=== PATIENT | female | born 1970 | race Caucasian/White ===

== ENCOUNTER 2016-12-07 05:35 | Inpatient (IN) | payer MEDICARE ==
--- NOTE | ~2016-12-07 | DS ---
PATIENT'S NAME: LAURA XIE [facility] AGE: 45 Y [address] ROOM: G6230 [place], [place] [address] LOCATION: [facility] ADMIT DATE: 12/07/2016 Discharge Summary DISCHARGE DATE: 12/09/2016 FAMILY PHYSICIAN: Haley Grider MD ATTENDING PHYSICIAN: Joshua Galaviz PRINCIPAL DIAGNOSIS: Severe sepsis secondary to methicillin-resistant staphylococcus aureus infected diabetic right foot ulcers. OTHER DIAGNOSES: 1. Questionable osteomyelitis of the right foot. 2. Insulin-dependent diabetes mellitus. 3. Severe peripheral arterial disease. 4. Atrial fibrillation, long-term anticoagulation. 5. Deep venous thrombosis. 6. Pneumonia. 7. Fibromyalgia. 8. Multiple hospitalizations. 9. Multiple allergies. HOSPITAL COURSE: A 45-year-old lady with a past medical history of severe diabetes mellitus, on insulin pump, who was recently discharged from the hospital for MRSA related sepsis on Bactrim. Came back to the emergency department not feeling well with a lot of nausea, vomiting, and low-grade fevers. In the emergency department, she was found to be severely hypoglycemic with a glucose of 10 on the BMP. She was also found to be in severe sepsis with elevated lactic acid as well as white count of 40,000. She was treated per the sepsis protocol. Initially, broad-spectrum antibiotics including linezolid and Zosyn were instituted with prompt resolution of the sepsis and resolution of the leukocytosis. Wound cultures came back positive for MRSA from the right foot. X-ray of the foot could not rule out the osteomyelitis. She was switched to linezolid IV( rash with vanco). This right foot ulcer had been a problem for many months now and is very challenging. I spoke to Infectious Disease doctor, Dr. Mckeon, over phone from [place] and followup appointment with him has been made on 12/11/2016. He was gracious enough to see her on an urgent basis. She might need an MRI of the foot again. Of note, the last MRI in October did not show any clinical evidence of osteomyelitis. She does have a port which has been there for couple of years now, and we could not draw any blood samples from it as well. UA was obtained after the institution of the antibiotics, so it could not be relied on. HOME MEDICATIONS: Gave a long list of home medications with multiple allergies; 1. Atorvastatin 80 mg p.o. every night at bedtime. 2. Clotrimazole 10 mg p.o. 5 times a day. 3. Cymbalta 120 mg p.o. every day. 4. Flonase 50 mcg 2 sprays nose every day. PATIENT'S NAME: LAURA XIE [facility] AGE: 45 Y [address] ROOM: [place] [address] LOCATION: [facility] ADMIT DATE: 12/07/2016 Discharge Summary DISCHARGE DATE: 12/09/2016 FAMILY PHYSICIAN: Haley Grider MD ATTENDING PHYSICIAN: Joshua Galaviz 5. Gabapentin 600 mg p.o. 4 times daily. 6. Insulin pump. 7. Floranex tablet 1 tablet p.o. twice daily. 8. Melatonin 10 mg p.o. every day at bedtime. 9. Omeprazole 40 mg p.o. twice daily. 10. Potassium 40 mEq 3 times daily. 11. Prednisone as previously prescribed. 12. Seroquel 400 mg p.o. twice daily. 13. Triamcinolone 1 application topical twice daily. 14. Advair 1 puff inhalation twice daily. 15. Tylenol 1000 mg p.o. q.6 hours p.r.n. 16. Diphenhydramine 75 mg p.o. every 3 hours p.r.n. 17. Dilaudid 4 mg take 2 tablets every 4 hours p.r.n. 18. Albuterol 2 puffs inhalation every 2 hours p.r.n. 19. Levocetirizine 5 mg p.o. every day. 20. Polyethylene glycol and MiraLax 17 g p.o. every day p.r.n. 21. Glucagon 1 mg subcu as needed p.r.n. for hypoglycemia. 22. Lasix 80 mg twice daily. 23. Nitrostat sublingual as needed. 24. Spironolactone 100 mg p.o. 4 times daily. 25. Zofran 4 mg p.o. 4 hours daily. 26. Metoprolol tartrate 50 mg p.o. twice daily. 27. Sulfamethoxazole and trimethoprim have been discontinued from the home medication list. 28. New medication is vancomycin IV. Pharmacy to dose. DISCHARGE INSTRUCTIONS: She has been instructed to take diabetic diet. She will need an appointment with the primary care physician within 1 week to assess the creatinine level. She has a lot of medications which need to be addressed, and I will leave it to the primary care physician who started in the first place. Activity as tolerated. FOLLOWUP: Follow up with Infectious Disease doctor on 12/11/2016. Insulin pump has been started on the discharge. I spent 40 minutes in discharge planning and coordinating care as well as answer questions on this patient. MD MEGHA YOUSSEF/velasquez PATIENT'S NAME: LAURA XIE [facility] AGE: 45 Y [address] ROOM: [place] [address] LOCATION: [facility] ADMIT DATE: 12/07/2016 Discharge Summary DISCHARGE DATE: 12/09/2016 FAMILY PHYSICIAN: Haley Grider MD ATTENDING PHYSICIAN: Joshua Galaviz /[id number] d: 12/10/16 0307 t: 12/10/16 1638, DISCHARGE SUMMARY
--- NOTE | ~2016-12-07 | CON ---
PATIENT'S NAME: LAURA XIE [facility] AGE: 45 Y [address] ROOM: G6204 [place], [place] [address] LOCATION: GICU ADMIT DATE: 12/07/2016 Consultation DISCHARGE DATE: FAMILY PHYSICIAN: Haley Grider MD ATTENDING PHYSICIAN: CHRIS GALAVIZ DATE OF CONSULTATION: 12/07/2016 REFERRING PHYSICIAN: Chris Galaviz MD LOCATION: Neuro Trauma Unit. REASON FOR CONSULTATION: Wound care consultation to evaluate and treat a right diabetic foot ulcer. HISTORY OF PRESENT ILLNESS: This is a 45-year-old female patient who was admitted to [facility] with hypoglycemia and severe sepsis. The patient was just discharged from the hospital 2 days ago. I am familiar with the patient. I last saw her down in the [facility] on 11/06/2016. The patient has a significant history for type 2 diabetes mellitus with insulin pump use, congestive heart failure, a left vomxl-ekh-cyqt amputation, history of osteomyelitis, history of MRSA and VRE, atrial fibrillation, DVT, and multiple foot surgeries. She underwent an I and D after osteomyelitis was found in her right foot this summer. She also underwent another debridement by Dr. Royal on 10/18/2016. At that time, no osteomyelitis was noted to the wound per the MRI. When she was discharged from the hospital, she was unable to regulate her "diabetes." She reported that she was unable to keep anything down and having trouble regulating her blood sugars. She reports that she was feeling warm, but does not think she had a fever. Her white blood cell count is significantly elevated today at 40.1. The patient has been applying wet-to- dry dressings to her right foot, changing them b.i.d. She has not noticed any pus or purulent exudate from that site. She reports that she thinks her foot looks good. She is complaining of 9/10 pain and requesting a BLOOD BANK COORDINATOR pump. She reports that her pain is burning and stabbing in nature. She does not have much sensation to that foot. She reports a fair appetite. She has a stump to her left leg that is adjusted by Echo Technologist. She is denying chest pain. She reports that she is slightly short of breath. She does have a significant drug rash from Levaquin. PAST MEDICAL HISTORY: Type 2 diabetes mellitus with insulin pump use, congestive heart failure, hypothyroidism, history of MRSA and VRE, osteomyelitis, paroxysmal atrial fibrillation, hyperlipidemia, GERD, obesity, pulmonary hypertension, diabetic neuropathy, anxiety, depression, DVT, asthma, fibromyalgia, pneumonia, hiatal hernia, peripheral edema, anemia, migraines, back pain, dizziness, allergic rhinitis, mitral valve prolapse, thrombosed right arm, nausea, and PATIENT'S NAME: LAURA XIE [facility] AGE: 45 Y [address] ROOM: G6204 [place], [place] [address] LOCATION: [facility] ADMIT DATE: 12/07/2016 Consultation DISCHARGE DATE: FAMILY PHYSICIAN: Haley Grider MD ATTENDING PHYSICIAN: CHRIS GALAVIZ gastroparesis. PAST SURGICAL HISTORY: Appendectomy, atrial septal defect repair in 2001, tonsillectomy with adenoidectomy, ovary removal, several heart catheterizations, multiple foot debridement and amputations, left qwdil-sdr-qzzl amputation in 08/2016, cholecystectomy, carpal tunnel surgery, tooth extraction, lymph node biopsy of the right groin, and lumbar peritoneal shunt with revision. FAMILY HISTORY: The patient's mother had coronary artery disease and peripheral vascular disease. Her father had coronary artery disease and COPD. SOCIAL HISTORY: The patient lives with her partner in [place], [place]. She denies smoking or alcohol use. She does appear to live a sedentary lifestyle. ALLERGIES: NUMEROUS. LYRICA, METFORMIN, MOXIFLOXACIN, VANCOMYCIN, ERTAPENEM, METRONIDAZOLE, LINEZOLID, LATEX, ADHESIVE TAPE, DAPTOMYCIN, AMBIEN, TRAZODONE, IODINE CONTRAST MEDIA, DILCIA INHIBITORS, PENICILLIN, QUINOLONES, AND CLINDAMYCIN. CURRENT MEDICATIONS: Pertinent to this dictation: 1. Zosyn. 2. Zyvox. Please refer to the medication administration record for further details. REVIEW OF SYSTEMS: A 10-point review of systems was completed and all are negative except as mentioned above in the HPI. PHYSICAL EXAMINATION: VITAL SIGNS: Temperature 99.9, pulse 117, respirations 22, blood pressure 185/81, pulse oximetry 97% on room air, height 5 feet 9 inches, and weight 102 kg. GENERAL: The patient is alert and oriented x3. She appears talkative and happy. She appears slightly diaphoretic. She appears to have gained weight in her face. HEENT: Head is normocephalic and atraumatic. RESPIRATORY: Clear, diminished throughout. CARDIOVASCULAR: Tachycardia had been noted, but when I assessed her she had a regular rate and rhythm. ABDOMEN: Bowel sounds active in all 4 quadrants. PATIENT'S NAME: LAURA XIE [facility] AGE: 45 Y [address] ROOM: [place] [address] LOCATION: GICU ADMIT DATE: 12/07/2016 Consultation DISCHARGE DATE: FAMILY PHYSICIAN: Haley Grider MD ATTENDING PHYSICIAN: CHRIS GALAVIZ EXTREMITIES: +1 right pedal pulses. Extremity is warm to touch. Capillary refill intact. The patient is missing toes to her right foot. NEUROLOGIC: Decreased sensation to her right foot. SKIN: Right first metatarsal head wound appears relatively stable from the last time I saw it. It is not near as deep this time. The wound measures 5.5 cm width x 5.0 cm length x 0.5 cm depth. About 50% of the wound bed is hypergranulation tissue. Wound bed is pale pink. There is a small amount of serous exudate noted. There is no fluctuance or odor. Periwound is intact. The patient has a significant drug rash to her bilateral arms and to her right leg with scattered red blotches and scabs. The patient notes these sites itch. LABORATORY DATA: White blood cell count 40.1, hemoglobin 18.5, hematocrit 55.9, and platelets 714. Sodium 139, potassium 3.7, chloride 97, bicarbonate 29, BUN 22, creatinine 1.2, glucose critical at 10. Procalcitonin 0.08. Lactate 2.6. Wound culture: Few gram-positive cocci and rare white blood cells. Final results pending. ASSESSMENT AND PLAN: Again, this is a 45-year-old female patient who was admitted to the hospital with hypoglycemia and severe sepsis. 1. Right diabetic foot wound to the first metatarsal head. This area appears relatively stable since the last time I saw her. The patient is continuing to refuse an amputation, but voices she knows she will "eventually have to get it cut off." The wound is not draining much. I do not see a need for a wound VAC at this time. There is some hypergranulation tissue, so I will switch up the dressing to a dry gauze, changing it b.i.d. She may need silver nitrate to those areas in the future. I am pleased that the depth does not probe to bone. Continue IV antibiotics. 2. Drug rash to arms and right leg. The patient is on a tapering dose of prednisone and triamcinolone cream b.i.d. 3. Elevated white blood cell count of 40.1. This is probably steroid and diabetic related to in addition to the sepsis. Hospitalist is managing IV therapy. It is difficult because the patient does have numerous allergies, but Zosyn and Zyvox are good coverage. 4. Pain. The patient is rating her pain 9/10. She is requesting a BLOOD BANK COORDINATOR pump. She reports that Dr. Grider normally gives her one. She is on oral narcotics currently. I suggested she talk to the hospitalist about this. 5. Uncontrolled type 2 diabetes mellitus with insulin pump use. The patient will have a diabetic consult. I would like to thank Dr. Galaviz for this consult. PATIENT'S NAME: LAURA XIE [facility] AGE: 45 Y [address] ROOM: [place] [address] LOCATION: [facility] ADMIT DATE: 12/07/2016 Consultation DISCHARGE DATE: FAMILY PHYSICIAN: Haley Grider MD ATTENDING PHYSICIAN: CHRIS GALAVIZ FRANCISCO JAVIER PATTEN APRN FOR [employer]/velasquez /[id number] d: 12/07/16 2340 t: 12/15/16 1334, CONSULTATION REPORT
--- NOTE | ~2016-12-07 | ER ---
PATIENT'S NAME: LAURA XIE [facility] AGE: 45 Y [address] ROOM: [place] [address] LOCATION: GICU ADMIT DATE: 12/07/2016 ER/Outpatient Report DISCHARGE DATE: FAMILY PHYSICIAN: Haley Grider MD ATTENDING PHYSICIAN: CHRIS GALAVIZ Time of Arrival: 0530 hours. Time of Evaluation: By myself at 0600 hours. CHIEF COMPLAINT: Low blood sugar. HISTORY OF PRESENT ILLNESS: The patient is a 45-year-old female, who presents to the emergency department today with a chief complaint of low blood sugar. She was recently released from [facility] after osteomyelitis of her right foot two days prior to arrival. She was found minimally responsive and found to have blood sugar in the 40s. She was transported via BLS unit here to the emergency department. Upon arrival here, she was found to have a fingerstick blood sugar of 23, and she was given an amp of D50 at that time and her symptoms improved. She reports that she is just not feeling well overall. She denies any chest pain or shortness of breath. Denies any fevers or chills. Denies any diarrhea or constipation. She does have a history of jeenl-cew-hwsx amputation on the left. She does report that she has chronic pain in her hip. PAST MEDICAL HISTORY: 1. Insulin-dependent diabetes mellitus with the insulin pump. 2. Peripheral neuropathy with chronic pain. 3. Asthma. 4. Secondary pulmonary hypertension. 5. Dyslipidemia. 6. Iron deficiency. 7. Allergic rhinitis. 8. Fluid retention. 9. Mood disorder. 10. Hives. 11. Gastroparesis. 12. Hypertension. 13. Gastroesophageal reflux disease. 14. Constipation. 15. Hypokalemia. 16. Nocturnal hypoxia. 17. Obesity. PAST SURGICAL HISTORY: 1. Shunt placement multiple associate surgeries with debridement or removal. 2. Left psenz-dsh-lkid amputation. PATIENT'S NAME: LAURA XIE [facility] AGE: 45 Y [address] ROOM: [place] [address] LOCATION: GICU ADMIT DATE: 12/07/2016 ER/Outpatient Report DISCHARGE DATE: FAMILY PHYSICIAN: Haley Grider MD ATTENDING PHYSICIAN: CHRIS GALAVIZ 3. Left groin lymph node biopsy. 4. Repair of an ASD. 5. Port placement. 6. Laparoscopy. 7. Tonsillectomy. 8. Cholecystectomy. 9. Hand surgery. 10. Endometrial biopsy. 11. Carpal tunnel syndrome. 12. Appendectomy. SOCIAL HISTORY: The patient denies any tobacco, alcohol, or illicit drug use. ALLERGIES: IV DYE, PENICILLIN, TRAZODONE, LATEX, DILCIA INHIBITORS, QUINOLONE, FLAGYL, AMBIEN, METFORMIN, VANCOMYCIN, LEVAQUIN, LINEZOLID, INVANZ, AND TYGACIL. MEDICATIONS: Please see list. PRIMARY CARE DOCTOR: Haley Grider MD REVIEW OF SYSTEMS: All systems are reviewed by myself and are negative with the exception of those discussed in the HPI and past medical history. PHYSICAL EXAMINATION: VITAL SIGNS: Weight 102.2 kg, blood pressure 156/77, pulse 114, respiratory rate 20, temperature 97.6, and oxygen saturation 97% on room air. GENERAL: The patient is a 45-year-old female, who appears older than stated age. HEENT: Normocephalic and atraumatic. Pupils are equal, round, reactive to light. Extraocular motions are intact. Nares are patent bilaterally. TMs are clear. Mucous membranes are mildly dry. NECK: Supple. There is no nuchal rigidity. CARDIOVASCULAR: Tachycardic. LUNGS: Clear to auscultation bilaterally. No wheezes, rales, or rhonchi. ABDOMEN: Soft, nontender, and nondistended. No rebound, rigidity, or guarding. MUSCULOSKELETAL: The patient has a left tvwgy-zfw-fncl amputation. Her right foot has open wound approximately the size of a golf ball on the plantar aspect of her right foot. She does have missing toes of the right foot. SKIN: Otherwise as described above in musculoskeletal. No other rashes or PATIENT'S NAME: LAURA XIE [facility] AGE: 45 Y [address] ROOM: G6[address] [place], [place] [address] LOCATION: [facility] ADMIT DATE: 12/07/2016 ER/Outpatient Report DISCHARGE DATE: FAMILY PHYSICIAN: Haley Grider MD ATTENDING PHYSICIAN: CHRIS GALAVIZ lesions. LABORATORY AND IMAGING DATA: Labs and x-rays are obtained. Multiple Accu-Chek blood sugars are checked and they ranged from 40 to 117, 136, 67, 52, 42, 41, 57, and 93. CBC: White blood cell count 40.1, hemoglobin 18.5, hematocrit 55.9, and platelets are 714,000. ANC is 35.3, 1% bands. CMP is unremarkable except for a glucose of 10, creatinine of 1.2, alkaline phosphatase 209, AST 76, ALT of 90, lactase is 2.6, and procalcitonin is 0.08. IMPRESSION: 1. Hypoglycemia. 2. Leukocytosis. 3. Recent osteomyelitis, right foot. 4. Initial visit. 5. Critical care time 38 minutes. EMERGENCY DEPARTMENT COURSE: The patient was brought back to the examination room. He was initially seen and evaluated by Dr. Mendiola, transfer of care was made to myself at shift change. The patient's insulin pump is removed. She does require a total of 8 amps of D50. She is also given 2 mg of Dilaudid, all IV. She was started on D5 half-normal saline and was switched to D10 half normal saline. The patient did require multiple re-evaluations due to her hypoglycemia, as Accu-Cheks were made approximately over 30 minutes. She required multiple D50 ampules. I did discuss the case with Dr. Julio Cesar Levin, who is on-call for the patient's primary care doctor. He does request hospitalist admission. I have contacted Dr. Galaviz with the Hospitalist Service. He does agree to accept the patient for further evaluation, treatment, and management. The patient did require critical care time of 38 minutes. This did include talking with the family, talking with the patient, talking with the consultants, ordering tests, reviewing tests, as well as close monitoring with the patient with recurrent hypoglycemia. This was a cumulative critical care time of 38 minutes. I did discuss the results with the patient and her at the bedside. They are agreeable with the plan for admission and she is without further questions. DISPOSITION: The patient is admitted under the care of the Hospitalist Service in stable condition. PATIENT'S NAME: ANNE-MARIE LAURA L [facility] AGE: 45 Y [address] ROOM: [place] [address] LOCATION: GICU ADMIT DATE: 12/07/2016 ER/Outpatient Report DISCHARGE DATE: FAMILY PHYSICIAN: Haley Grider MD ATTENDING PHYSICIAN: CHRIS GALAVIZ DO KJMatheus/modl /[id number] d: 12/07/16 2141 t: 12/09/16 0643, OUTPATIENT REPORT
--- NOTE | ~2016-12-07 | HP ---
PATIENT'S NAME: LAURA XIE [facility] AGE: 45 Y [address] ROOM: [address] [address] LOCATION: GICU ADMIT DATE: 12/07/2016 History & Physical DISCHARGE DATE: FAMILY PHYSICIAN: Haley Grider MD ATTENDING PHYSICIAN: CHRIS VICTORIA CHIEF COMPLAINT: "I am not feeling right and feeling weak." HISTORY OF PRESENT ILLNESS: This is a 45-year-old lady with past medical history of diabetes on insulin pump. Complications of diabetes including ulcers on the bilateral feet leading to left below-knee amputation as well as debridement of ulcers on the right foot with amputation of the right big toe, repair of ASD, laparoscopy surgery and cholecystectomy, appendectomy, who was recently discharged from [facility] under the care of Dr. Grider, where she was admitted for fever and cellulitis and was treated initially with vancomycin and then later switched to Bactrim per Infectious Disease. Of note, on vancomycin, she developed erythema multiforme which was treated with IV steroids and later transitioned to oral and she improved on that. Today, she comes in saying that in the morning she was very sweaty and not feeling right and became confused. She had her insulin pump on at that point, and her roommate did not feel that she is doing at her regular herself. An EMS was called and she was brought to the emergency department. In the emergency department, her blood glucose level on the Accu-Chek was 30, and later on the CMP, it was less than 10. She was given couple of amps of D5 and then started on D5 and D10 drip that raised her blood glucose levels appropriately and her mentation recovered. On encounter, she appears a little anxious and shaky. Otherwise, she is alert and oriented x3. She denied any headache, any trouble with the eyes, any trouble swallowing, any chest pain or shortness of breath, any extremity swelling or weakness. She did endorse having some generalized abdominal pain as well as a pain in the right hip. PAST MEDICAL HISTORY: 1. Type 2 diabetes, currently on insulin pump with U-500, follows diabetic education. 2. Severe vascular disease related to diabetes leading to left below-knee amputation as well as right foot ulcers which was debrided recently in the hospital. 3. GERD. 4. History of ASD repair. 5. History of volume overload. FAMILY HISTORY: Family history is positive for COPD in dad. SOCIAL HISTORY: PATIENT'S NAME: LAURA XIE [facility] AGE: 45 Y [address] ROOM: [id number] [place], [place] [address] LOCATION: [facility] ADMIT DATE: 12/07/2016 History & Physical DISCHARGE DATE: FAMILY PHYSICIAN: Haley Grider MD ATTENDING PHYSICIAN: CHRIS VICTORIA Never smoked. No alcohol or drug abuse. Lives with a friend in [place]. MEDICATIONS: Please see MAR. REVIEW OF SYSTEMS: All other systems reviewed and were negative except what is mentioned in the HPI. PHYSICAL EXAMINATION: VITAL SIGNS: 125, 123/66, afebrile, 16, 98.6. GENERAL: In no acute distress. Alert and oriented x3. HEENT: Head: Atraumatic and normocephalic. Eyes: Nonicteric. No pallor. Oropharynx: Dry mucous membranes. CARDIOVASCULAR: Tachycardic. S1, S2. No murmurs, gallops, or rubs. LUNGS: Clear to auscultation bilaterally. ABDOMEN: Soft, nontender, and nondistended. Bowel sounds are positive. EXTREMITIES: Right extremity did show 1 x 1 cm ulcer, appears to be recently debrided. No purulent material noted. Absence of right metatarsal. Left above-knee amputation. SKIN: Skin did show erythema multiforme all over. PSYCH: Normal affect, mood, and speech. LABORATORY DATA: Significant labs in the emergency department today showed a lactate of 2.6 and blood glucose of 10 on the CMP. Other than that, her white count is elevated at 40 from previous white count of 26, hemoglobin is 18, MCV is 84, and platelet is 714. BUN of 22, creatinine of 1.2, sodium 139, potassium 3.7, chloride 97, bicarb 29, calcium 8.6, alkaline phosphatase is 209, AST is 90, AST is 76. Procalcitonin is 0.08. ANC of 35. ASSESSMENT AND PLAN: 1. Severe sepsis. 2. Hypoglycemia. 3. Likely bacteremia. 4. Type 2 diabetes. 5. Peripheral vascular disease. PLAN: We are going to admit this patient to the inpatient. We are going to follow sepsis protocol; obtain blood cultures, one from the port and one peripheral; intravenous resuscitation with Ringer's lactate as well as D10. I believe her hypoglycemia is part of the sepsis. We will get diabetic education consult on board. We will repeat lactic acid and labs in 6 hours. We are going to start broad-spectrum antibiotics including linezolid as well as Zosyn. We will PATIENT'S NAME: LAURA XIE [facility] AGE: 45 Y [address] ROOM: [address] [place] [id number] LOCATION: [facility] ADMIT DATE: 12/07/2016 History & Physical DISCHARGE DATE: FAMILY PHYSICIAN: Haley Grider MD ATTENDING PHYSICIAN: CHRIS VICTORIA monitor her overnight and see how she progresses and further decisions will be made on her hospitalization course. Diabetic diet and Lovenox for DVT prophylaxis. MD MEGHA YOUSSEF/modrashid /[id number] D: 046 T: 633 HISTORY & PHYSICAL
--- NOTE | ~2016-12-07 | ER ---
PATIENT'S NAME: YOBANY XIEA [facility] AGE: 45 Y [address] ROOM: [place] [address] LOCATION: GICU ADMIT DATE: 12/07/2016 ER/Outpatient Report DISCHARGE DATE: FAMILY PHYSICIAN: Haley Grider MD ATTENDING PHYSICIAN: CHRIS VICTORIA Time of Arrival: 0535. Time Seen: 0535. IDENTIFICATION: 45-year-old female. CHIEF COMPLAINT: Unresponsive. HISTORY OF PRESENT ILLNESS: The patient is a 45-year-old female, who was brought in by ambulance from [place]. The patient was released on December 05 from [facility] for a leg infection. She did not feel well yesterday. She has diabetes and has an insulin pump. History obtained retrospectively. When given rescue, arrived at her house, her blood sugar was 45, they transported her BLS and stated that her blood sugar was 23. When they just arrived here to [facility], an IV was initiated. The patient was given one amp of D50. She did come around a little more to answer few questions. She said she has had no fever or chills, but just has not felt well. She does not know where her insulin pump is. She did have an insulin vial attached to tubing but not in the pump. She states that she uses Humulin R U-500. PAST MEDICAL HISTORY: Really unable to obtain from the patient initially. REVIEW OF SYSTEMS: Unable to obtain from the patient initially. Records reflect a history of type 2 diabetes, peripheral vascular disease status post left fepbu-vbt-siuy amputation as well as some right foot ulcers with toe amputations, gastroesophageal reflux disease, history of ASD repair, peripheral neuropathy, hyperlipidemia. PRIOR SURGERIES: Multiple foot surgeries on the left fwjew-ysj-wynk amputation. SOCIAL HISTORY: The patient lives in [place]. She does have a roommate. Tobacco use; unknown. Alcohol use; unknown. Drug use; unknown. REVIEW OF SYSTEMS: Unable to obtain from the patient. PATIENT'S NAME: LAURA XIE [facility] AGE: 45 Y [address] ROOM: [place] [address] LOCATION: GICU ADMIT DATE: 12/07/2016 ER/Outpatient Report DISCHARGE DATE: FAMILY PHYSICIAN: Haley Grider MD ATTENDING PHYSICIAN: CHRIS VICTORIA FAMILY HISTORY: Per records, positive for COPD. PHYSICAL EXAMINATION: VITAL SIGNS: Height 5 feet 9 inches and weight 102.2 kg, blood pressure 156/77, pulse 114, respirations 20, temperature 97.6, sats 97% on room air. GENERAL: A 45-year-old female. HEENT: Head: Normocephalic and atraumatic. Ears: TMs not visualized. Eyes; pupils are 8 mm and reactive. Extraocular movements intact. Nose: Mucosa pink. No lesions. Mouth: No lesions. Pharynx benign. NECK: Supple. No lymphadenopathy. LUNGS: Clear to auscultation. HEART: Sinus tachycardia. ABDOMEN: Bowel sounds present. Soft, nondistended. SKIN: [place], warm, and dry. The patient has a dressing on her right foot, which was not addressed on initial evaluation. EXTREMITIES: The patient has some dry erythematous patches on both lower extremities. She has a eukgb-sep-ysol amputation on her left lower extremity. NEUROLOGIC: The patient is disoriented to person, place, and time. She has no focal deficit. She moves all extremities. LABORATORY DATA: Labs were obtained including a repeat Accu-Chek after the D50, which was 117. It was change of shift and Dr. Leonard assumed care at this time. D5 half-normal saline was initiated at 150 mL/h. The patient's care was handed off to Dr. Leonard. DIANNE MORENO MD CAR/modl /[id number] d: 12/08/16 0758 t: 12/08/16 1829, OUTPATIENT REPORT
[~2016-12-07 05:35] MED LIST: ADVAIR 250-501 EACH INH; ALDACTONE100 MG PO; ASPIRIN EC81 MG PO; ATARAX25 MG PO; ATIVAN 1 MG1 MG PO; BACTRIM DS; BACTRIM DS1 TAB PO; BENADRYL25 MG PO; CATAPRES0.1 M1 PO; CEFTIN250 MG PO; CLARITIN10 M2 PO; CLARITIN10 M3 PO; CLONIDINE; CYMBALTA60 MG PO; DELTASONE10 MG PO; DILAUDID 4MG4 MG PO; DILAUDID4 MG PO; DILAUDID8 MG PO; DULERA 200 MCG/51 EA INH; FEOSOL325 MG PO; FLAGYL 500500 MG/100 IV; FLEXERIL10 MG PO; FLONASE 50 MCG/16 GM NOSE; FLONASE 50 MCG/16 GM PO; FLORANEX TABLE1 EACH PO; GLUCAGON/GLUCAGE1 MG SUB-Q; GLUCOSE4 GM PO; HUMULIN R100 UNIT/1 XX; HUMULIN R500 UNIT/M SUB-Q; HYDROXYZINE; K-TAB (4040 MEQ/4 T PO; K-TAB ER20 MEQ PO; KLOR-CON M2020 MEQ PO; LACTINEX (FLORA1 TAB PO; LAMICTAL150 MG PO; LAMICTAL25 MG PO; LASIX40 M1 PO; LEVAQUIN; LIPITOR80 MG PO; LOPERAMIDE2 M1 PO; LOPRESSOR12.5 MG/0. PO; LOPRESSOR25 MG PO; LOPRESSOR50 MG PO; LORATADINE; LYRICA 75MG CAP75 MG PO; MAGOX 400400 MG PO; MELATONIN PO; MELATONIN10 M2 PO; MERREM IV; MIRALAX PO527 GM/BOT PO; MIRALAX17 GM PO; NEURONTIN600 MG PO; NITROSTAT0.4 MG SL; OMEPRAZOLE40 MG PO; OXYGEN INH; PATIENT'S OWN MED; PHILLIPS'400 MG/5 M PO; PRILOSEC40 MG PO; PROTONIX40 MG PO; PROVENTIL OR V6.7 GM INH; REGLAN10 MG PO; SEROQUEL; SEROQUEL XR400 MG PO; SEROQUEL100 MG PO; SEROQUEL300 MG PO; SEROQUEL400 MG PO; SINGULAIR10 MG PO; TAPAZOLE5 M1 PO; TRIACET 0.1% 8080 GM TOP; TRIAMCINOLONE454 GM TOP; TYGACIL50 MG IV; TYLENOL EXTRA500 MG PO; TYLENOL325 MG PO; XARELTO20 MG PO; XYZAL5 MG PO; ZAROXOLYN2.5 MG PO; ZOFRAN4 MG PO; ZOFRAN8 M1 PO; ZYRTEC10 M3 PO
[2016-12-07 06:13] LABS: HEMATOCRIT 55.9 % (33.0-46.0); HEMOGLOBIN 18.5 g/dL (10.0-15.0); MCH 27.9 pg (27.0-34.0); MCHC 33.1 gm/dL (32.0-36.5); MCV 84.2 fl (83.0-98.0); MPV 9.4 fl (9.4-12.4); RBC 6.64 M/uL (3.50-5.50); RDW-CV 17.4 % (11.9-14.6)
[2016-12-07 06:15] LABS: PLATELET COUNT 714 K/uL (150-450); WBC 40.1 K/uL (4.0-11.0)
[2016-12-07 06:24] LABS: ALBUMIN 3.3 gm/dL (3.5-5.0); CALCIUM 8.6 mg/dL (8.5-10.5); CREATININE 1.2 mg/dL (0.5-1.1); TOTAL PROTEIN 8.6 g/dL (6.0-8.4)
[2016-12-07 06:32] LABS: ANION GAP 16.7 (10.0-19.0); POTASSIUM 3.7 mMol/L (3.7-5.1)
[2016-12-07 06:35] LABS: TOTAL BILIRUBIN 0.7 mg/dL (0.0-1.5)
[2016-12-07 07:14] LABS: ABSOLUTE NEUTROPHIL CT (ANC) 35.3 K/uL (1.8-7.8); BANDED NEUTROPHIL # 0.4 K/uL (0.0-0.1); BANDED NEUTROPHILS % 1 %; LYMPHOCYTE # 3.6 K/uL (0.8-4.0); LYMPHOCYTE % 9 %; MONOCYTE # 1.6 K/uL (0.0-1.0); SEGMENTED NEUTROPHIL # 34.9 K/uL (1.8-7.8); SEGMENTED NEUTROPHIL % 87 %
--- NOTE | 2016-12-07 12:35 | NUR ---
ADMIT TO ROOM 6230 FROM ER VIA STRETCHER. A&OX3. C/O 9/10 PAIN TO RIGHT HIP, STATES HAS BURSITIS IN HIP, ALSO C/O HEADACHE THAT PT STATES IS FROM NOT EATING. HAS RED RASH TO BOTH ARMS AND LEGS, SCATTERED SCABS TO BOTH ARMS AND LEGS, STATES IS FROM AN ALLERGIC REACTION TO VANCOMYCIN. TELEMETRY MONITORING SHOWS ST HR 110-120, HTN. LUNGS CLEAR AND DIM. IVF OF D10 0.45NS INFUSING VIA MEDIPORT RIGHT CHEST. HAS DIABETIC ULCER PRESENT TO PLANTAR SURFACE OF RIGHT FOOT, COVERED WITH WET TO DRY DRSG. HX LEFT BKA. ORIENTATED TO ROOM AND NTU ROUTINE. 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 CALL COYLE IN [place].
[2016-12-07] MEDS ORDERED: CLOTRIMAZOLE10 MG PO (13:00)
--- NOTE | 2016-12-07 13:54 | NUR ---
ACCUCHECK 52, ASYMPTOMATIC. GIVEN JUICE, JELLO AND GLUCOSE TABS.
[2016-12-07 14:28] LABS: INR - (THERAPEUTIC) 1.1 (0.9-1.1); PROTIME 11.6 SECONDS (9.6-11.1)
--- NOTE | 2016-12-07 19:23 | NUR ---
PATIENT WAS TRANSFER FROM NTU TO ICU AT 1710 TODAY. ALERT AND ORIENTED WITH NTU RN AT BEDSIDE. SINUS TACHYCARIDA. BP 127/56 ON ARRIVAL. TEMP 99.0. ROOM AIR. LR AT 125 D101/2 NS AT 50ML/HR. CHECKING BS HOURLY FOR HYPOGLYCEMIA. PT REFUSED BELLA. NEED UA FOR CX, SPUTUM CX, AND BC X1. NONE OF THIS OBTAINED PRIOR TO ABX, NOTIFIED. 1 BC FROM PERIPHERAL DRAWN, UNABLE TO GET BLOOD RETURN FROM CHEST PORT. IVF INFUSING IN CHEST PORT. RUQ U/S COMPLETED TODAY. DIABETIC DIET. ACTIVE, B/S PT REPORTS BM IN ER TODAY. NO VOID SINCE ARRIVAL TO ICU. R) FOOT WITH ULCER WET TO DRY DRESSING INTACT PLACED BY NTU RN, REPORTED. SCABS NOTED TO BUE. PT STARTED ON ZOSYN AND ZYVOX. ACCUCHECK CHECKED FIRST WAS 126. WILL CONTINUE TO ASSESS. REPORT GIVEN TO AGUSTINA BLACKMAN.
[2016-12-07 20:34] LABS: BILIRUBIN URINE NEGATIVE (NEGATIVE); BLOOD URINE 25 /UL (NEGATIVE); COLOR URINE YELLOW (YELLOW); GLUCOSE URINE 50 mg/dL (NEGATIVE); KETONE URINE NEGATIVE (NEGATIVE); LEUKOCYTES URINE 25 /UL (NEGATIVE); NITRITE URINE NEGATIVE (NEGATIVE); PROTEIN URINE 100 mg/dL (NEGATIVE); TURBIDITY URINE CLEAR (CLEAR); UROBILINOGEN URINE NORMAL (NORMAL)
[2016-12-07 21:15] LABS: EPITHELIAL URINE 0-2 #/HPF (NEGATIVE)
[2016-12-07 21:16] LABS: BACTERIA URINE FEW (NEGATIVE); GRANULAR CASTS URINE 0-2 #/LPF (NEGATIVE)
--- NOTE | 2016-12-08 03:52 | NUR ---
Significant Event: Patient alert and oriented. Rested in bed this shift. Repositions self. VSS. Wears 10L oxygen at night, room air during the day. Dilaudid given x1 and Aqua K pad applied to right hip for pain management. Right foot ulcer with dressing changed. Port to right chest with sluggish blood return noted. Chapin place and UA sent. Pleasant and cooperative with cares. Rested well throughout shift. Follow up: pain, continue to monitor.
[2016-12-08 09:33] LABS: BASOPHIL % 0.1 %; HEMOGLOBIN 13.2 g/dL (10.0-15.0); IMMATURE GRANULOCYTE # 0.2 K/uL (0.0-0.3); LYMPHOCYTE # 3.1 K/uL (0.8-4.0); LYMPHOCYTE % 16.8 %; MCV 86.1 fl (83.0-98.0); MONOCYTE # 1.4 K/uL (0.0-1.0); MONOCYTE % 7.6 %; MPV 9.1 fl (9.4-12.4); NEUTROPHIL # (ANC) 13.7 K/uL (1.8-7.8); NEUTROPHIL % 74.5 %; NRBC % 0 /100WBC (0-0.00); RDW-CV 16.4 % (11.9-14.6); WBC 18.4 K/uL (4.0-11.0)
[2016-12-08 09:34] LABS: HEMATOCRIT 41.6 % (33.0-46.0); MCH 27.3 pg (27.0-34.0); MCHC 31.7 gm/dL (32.0-36.5); PLATELET COUNT 412 K/uL (150-450); RBC 4.83 M/uL (3.50-5.50)
[2016-12-08 09:47] LABS: ANION GAP 12.3 (10.0-19.0); BLOOD UREA NITROGEN 14 mg/dL (6-24); CALCIUM 7.9 mg/dL (8.5-10.5); CHLORIDE 99 mMol/L (96-110); CO2 29 mMol/L (22-32); CREATININE 0.9 mg/dL (0.5-1.1); POTASSIUM 4.3 mMol/L (3.7-5.1); SODIUM 136 mMol/L (135-145)
[2016-12-08 09:49] LABS: ESTIMATED GFR (MDRD EQUATION) > 60
--- NOTE | 2016-12-08 17:45 | NUR ---
Significant Event:Patient A/O x3. Dilaudid given for hip pain. Left BKA. Accuchecks >200. Insulin pump off. Chapin patent. Rash noted to kumar arms and right leg. Likes Diet Pepsi drinks this instead of water. Port intact and flushes. Bedrest all day. VSS. Follow up:check insulin pump.
--- NOTE | 2016-12-08 17:48 | NUR ---
Patient has stated she was sick for 2 days and didn't eat. Was noted today by patient that her insulin pump is broke and missing a part.
[2016-12-09 05:20] LABS: BASOPHIL % 0.1 %; EOSINOPHIL % 0.1 %; HEMATOCRIT 38.2 % (33.0-46.0); HEMOGLOBIN 12.1 g/dL (10.0-15.0); IMMATURE GRANULOCYTE # 0.1 K/uL (0.0-0.3); IMMATURE GRANULOCYTE % 0.7 %; LYMPHOCYTE % 20.3 %; MCH 27.6 pg (27.0-34.0); MCHC 31.7 gm/dL (32.0-36.5); MONOCYTE # 1.3 K/uL (0.0-1.0); MONOCYTE % 8.6 %; MPV 9.4 fl (9.4-12.4); NEUTROPHIL # (ANC) 10.5 K/uL (1.8-7.8); NEUTROPHIL % 70.2 %; NRBC % 0 /100WBC (0-0.00); PLATELET COUNT 376 K/uL (150-450); RBC 4.39 M/uL (3.50-5.50); RDW-CV 16.3 % (11.9-14.6); WBC 14.9 K/uL (4.0-11.0)
[2016-12-09 05:35] LABS: ANION GAP 10.7 (10.0-19.0); BLOOD UREA NITROGEN 16 mg/dL (6-24); CALCIUM 7.8 mg/dL (8.5-10.5); CHLORIDE 102 mMol/L (96-110); CO2 29 mMol/L (22-32); CREATININE 0.8 mg/dL (0.5-1.1); ESTIMATED GFR (MDRD EQUATION) > 60; POTASSIUM 3.7 mMol/L (3.7-5.1); SODIUM 138 mMol/L (135-145)
--- NOTE | 2016-12-09 05:53 | NUR ---
SIGNIFICANT EVENT: PATIENT A/O X 3. PERRLA. MOVES UPPER EXTREMITIES SPONTANEOUSLY AND TO COMMAND. RLE ABLE TO WIGGLE TOES SLIGHTLY WITH N/T. LLE AMPUTATED, PHANTOM PAIN, NUMBNESS. B/T TO BILATERAL HANDS. BOWELS ACTIVE. LAST BM 2 DAYS AGO. BELLA PULLED AT 0540 THIS SHIFT. SKIN RASH FROM VANCO TO RLE AND UPPER EXTREMITIES. DRESSING TO RIGHT FOOT INTACT, DRY GAUZE. PORT TO RIGHT CHEST SALINE LOCKED, NO BLOOD RETURN. ADA DIET. MILD SLIDING SCALE. DILAUDID FOR PAIN Q 4 HOURS. NEED SPUTUM AND STOOL SAMPLE. NO BM THIS SHIFT AND NO PRODUCTIVE SPUTUM. FOLLOW UP: DIABETIC NURSE TO SEE PATIEN ABOUT INSULIN PUMP THAT IS BROKEN.
--- NOTE | 2016-12-09 14:58 | NUR ---
[facility] note: 1430 RN assisted patient in getting insulin pump restarted. Patient has U 500 insulin and new supplies from home. There was some concern regarding the patient thinking that she does not have a piece of the pump for the reservoir. Patient father brought new supplies and piece from home and CDE verified. Blood sugar at the time that insulin pump was restarted was over 300 and had patient bolus 9.9 units of u 500 insulin via pump. Reviewed basic pump safety with ketone testing, hypoglycemia protocal and patient states understanding education provided. CDE's cell phone number provided to patient for patient to call if there are questions or concerns.
[2016-12-09] MEDS ORDERED: MAG-OX-400(241400 MG PO (16:14)
[2016-12-09] MEDS ORDERED: FEOSOL325 MG PO (16:14)
[2016-12-09] MEDS ORDERED: ZYVOX600 MG PO (16:14)
[2016-12-09] MEDS ORDERED: ZAROXOLYN5 MG PO (16:14)
[2016-12-09] MEDS ORDERED: ASPIR 8181 MG PO (16:14)
[2016-12-09] MEDS ORDERED: LAMICTAL200 MG PO (16:14)
[2016-12-09] MEDS ORDERED: REGLAN10 MG PO (16:14)
[2016-12-09] MEDS ORDERED: SINGULAIR10 MG PO (16:14)
[2016-12-09] MEDS ORDERED: HUMULIN R500 UNIT/M SUB-Q (16:14)
--- NOTE | 2016-12-09 16:25 | NUR ---
Call from nursing that Promise is going to go home today and I need to come see her and line up HHC upon discharge. I got up to the floor and reviewed Promise's chart. I talked with Promise, she doesn't feel the need for any HHC services upon discharge. She states she does her own dressing changes so HHC won't be needed. After talking with her, I saw that Dr. Galaviz had ordered for her to go home on IV Zyvox twice daily. I then brought the chart and orders up to primary care RN Zeinab as I wasn't aware that she would need IV Abxs so I needed to let her know that Promise wouldn't be able to discharge until I got a pharmacy to do home infusion. After talking, Zeinab and myself phoned Dr. Galaviz to see if we could switch the IV Abxs to PO if at all possible. Dr. Galaviz did say that we could switch her from IV to PO and she could still discharge today, she just needed to follow up with ID on Friday. After hanging up the phone with Dr. Galaviz, I looked further into her home medication list and her allergies, I noticed that Zyvox (Linezolid) was listed on her allergy sheet. I questioned Zeinab as I didn't think that sending someone out on something that they were allergic to was the best option. We once again called , who stated to us that she had been on it here since admission and not had any issues so that is what he was going to send her home on. YEHUDA Arriola did go ahead and proceed with writing a script for PO Zyvox x7 days per Dr. Arora recommendations. No other questions, needs or concerns. Will continue to follow and assist. Plan for home.
--- NOTE | 2016-12-09 17:45 | NUR ---
DISCHARGE TEACHING GIVEN TO PT AND HER SIGNIFICANT OTHER, PRESCRIPTIONS AND APPOINTMENT CARDS GIVEN. ALL QUESTIONS ANSWERED. ALL PERSONAL BELONGINGS TAKEN HOME WITH PT. TAKEN TO PRIVATE VEHICLE VIA W/C.
[2016-12-15] MEDS ORDERED: BACTRIM DS1 TAB PO (10:32)
[2016-12-15] MEDS ORDERED: LAMICTAL200 MG PO (10:33)
[2016-12-15] MEDS ORDERED: SINGULAIR10 MG PO (10:33)
[2016-12-15] MEDS ORDERED: REGLAN10 MG PO (10:33)
[2016-12-22] MEDS ORDERED: MYCOSTATIN CREA30 GM TOP (14:00)
[2016-12-22] MEDS ORDERED: ALBUTEROL2.5 MG/31 INH (14:14)
[2016-12-22] MEDS ORDERED: CODEINE-GUAIFE473 ML PO (14:17)
== END 2016-12-09 17:36 | disposition disaster alternative care site (69) | DRG 872 ==
LOC: GMED 05:35 → GNTU 10:28 → GMED 10:28 → GNTU 17:28 → GICU 17:28 → GNTU 17:28
PROVIDERS: Family Medicine; ADMIT Internal Medicine
DX: A41.9 Sepsis, unspecified organism (principal); N17.9 Acute kidney failure, unspecified; E11.42 Type 2 diabetes mellitus with diabetic polyneuropathy; I11.0 Hypertensive heart disease with heart failure; I27.2 Other secondary pulmonary hypertension; K31.84 Gastroparesis; I50.9 Heart failure, unspecified; M86.9 Osteomyelitis, unspecified; J98.11 Atelectasis; M25.559 Pain in unspecified hip; E11.649 Type 2 diabetes mellitus with hypoglycemia without coma; R65.20 Severe sepsis without septic shock; G89.29 Other chronic pain; J45.909 Unspecified asthma, uncomplicated; E78.5 Hyperlipidemia, unspecified; J30.9 Allergic rhinitis, unspecified; F39 Unspecified mood [affective] disorder; E11.43 Type 2 diabetes mellitus with diabetic autonomic (poly)neuropathy; I73.9 Peripheral vascular disease, unspecified; K21.9 Gastro-esophageal reflux disease without esophagitis; K59.00 Constipation, unspecified; E66.9 Obesity, unspecified; R09.02 Hypoxemia; A49.02 Methicillin resistant Staphylococcus aureus infection, unspecified site; I48.91 Unspecified atrial fibrillation; L27.1 Localized skin eruption due to drugs and medicaments taken internally; T37.8X5A Adverse effect of other specified systemic anti-infectives and antiparasitics, initial encounter; E03.9 Hypothyroidism, unspecified; I48.0 Paroxysmal atrial fibrillation; F41.9 Anxiety disorder, unspecified; M79.7 Fibromyalgia; K44.9 Diaphragmatic hernia without obstruction or gangrene; I34.1 Nonrheumatic mitral (valve) prolapse; E11.69 Type 2 diabetes mellitus with other specified complication; E11.621 Type 2 diabetes mellitus with foot ulcer; L97.519 Non-pressure chronic ulcer of other part of right foot with unspecified severity; Z89.421 Acquired absence of other right toe(s); Z89.512 Acquired absence of left leg below knee; Z86.14 Personal history of Methicillin resistant Staphylococcus aureus infection; Z82.49 Family history of ischemic heart disease and other diseases of the circulatory system; Z96.41 Presence of insulin pump (external) (internal); Z68.33 Body mass index [BMI] 33.0-33.9, adult
CPT/HCPCS: J1170; J1610; J1650; J2020; J2543; J7050; J7120; J7512

== ENCOUNTER → 2017-05-30 | Outpatient (CLI) | payer MEDICARE ==
[~2017-05-30] MED LIST changes: +ALBUTEROL2.5 MG/31 INH; +ASPIR 8181 MG PO; +CLOTRIMAZOLE10 MG PO; +CODEINE-GUAIFE473 ML PO; +LAMICTAL200 MG PO; +MAG-OX-400(241400 MG PO; +MYCOSTATIN CREA30 GM TOP; +ZAROXOLYN5 MG PO; +ZYVOX600 MG PO
== END | disposition disaster alternative care site (69) ==
LOC: GRAD 09:14
DX: E04.1 Nontoxic single thyroid nodule (principal)

== ENCOUNTER → 2017-07-10 | Day surgery (SDC) | payer MEDICARE ==
[~2017-07-10] VITALS: Ht 175.3 cm; Wt 108.4 kg
--- NOTE | ~2017-07-10 | OR ---
PATIENT'S NAME: LAURA XIE [facility] AGE: 46 Y [address] ROOM: [place] [address] [place] [facility] [place]: 07/10/2017 OR/Procedure Report DISCHARGE DATE: FAMILY PHYSICIAN: Haley Grider MD ATTENDING PHYSICIAN: JASPREET ROYAL SURGEON: Jaspreet Royal MD TECHNICIAN ASSISTANT: DATE OF PROCEDURE: 07/10/2017 PREOPERATIVE DIAGNOSIS: Hypergranulation of right foot wound. POSTOPERATIVE DIAGNOSIS: Hypergranulation of right foot wound. PROCEDURES PERFORMED: Debridement of right foot wound. SUBSTANCE ABUSE THERAPIST: OR Staff. ANESTHESIA: General. ESTIMATED BLOOD LOSS: 5 mL. OPERATIVE FINDINGS: Removal of hypergranular tissue, wound with the skin. DESCRIPTION OF PROCEDURE: The patient was brought to the Operating Room, placed supine . The patient received preoperative antibiotics. A preoperative time-out was performed. We used a 15-blade to sharply debride the hypergranulation tissue from her neuropathic diabetic ulcer. We removed it until it was now flush with the skin. The area was about 2 x 2 cm. WOUND CLOSURE: There was minimal bleeding, which was repaired with the Bovie cautery. The wound was irrigated, and then packed with the antibiotic-soaked solution gauze, and then wrapped with a Kerlix and an Be. DISPOSITION: The patient tolerated the procedure well, and was transferred to Recovery Room and home later that day. JASPREET ROYAL MD FKM/modl PATIENT'S NAME: LAURA XIE [facility] AGE: 46 Y [address] ROOM: [place] [address] [place] [facility] [place]: 07/10/2017 OR/Procedure Report DISCHARGE DATE: FAMILY PHYSICIAN: Haley Grider MD ATTENDING PHYSICIAN: JASPREET ROYAL /[id number] d: 07/10/172026 t: 07/20/176, OPERATIVE SUMMARY
[2017-07-10 10:25] LABS: BASOPHIL # 0.1 K/uL (0.0-0.2); BASOPHIL % 0.6 %; HEMOGLOBIN 14.3 g/dL (10.0-15.0); IMMATURE GRANULOCYTE # 0.1 K/uL (0.0-0.3); IMMATURE GRANULOCYTE % 1.2 %; LYMPHOCYTE # 3.4 K/uL (0.8-4.0); LYMPHOCYTE % 29.1 %; MCH 28.1 pg (27.0-34.0); MCHC 32.5 gm/dL (32.0-36.5); MCV 86.4 fl (83.0-98.0); MONOCYTE # 1.2 K/uL (0.0-1.0); MONOCYTE % 10.4 %; MPV 9.9 fl (9.4-12.4); NEUTROPHIL # (ANC) 6.8 K/uL (1.8-7.8); NEUTROPHIL % 58.7 %; NRBC % 0 /100WBC (0-0.00); PLATELET COUNT 417 K/uL (150-450); RBC 5.09 M/uL (3.50-5.50); RDW-CV 14.6 % (11.9-14.6); WBC 11.6 K/uL (4.0-11.0)
[2017-07-10 10:41] LABS: ALBUMIN 3.5 gm/dL (3.5-5.0); ANION GAP 13.9 (10.0-19.0); CALCIUM 9.1 mg/dL (8.5-10.5); POTASSIUM 3.9 mMol/L (3.7-5.1); TOTAL BILIRUBIN 0.3 mg/dL (0.0-1.5); TOTAL PROTEIN 7.9 g/dL (6.0-8.4)
== END ==
LOC: GPOC 07-02 11:00 → GSDC 09:37
PROVIDERS: Surgery Vascular Surgery
PROC: 0JBQ0ZZ Excision of Right Foot Subcutaneous Tissue and Fascia, Open Approach (ICD-10-PCS; principal; 2017-07-10)
DX: E11.621 Type 2 diabetes mellitus with foot ulcer (principal); L97.519 Non-pressure chronic ulcer of other part of right foot with unspecified severity; E03.9 Hypothyroidism, unspecified; I27.2 Other secondary pulmonary hypertension; J45.909 Unspecified asthma, uncomplicated; K21.9 Gastro-esophageal reflux disease without esophagitis; I25.10 Atherosclerotic heart disease of native coronary artery without angina pectoris; I50.9 Heart failure, unspecified; E78.00 Pure hypercholesterolemia, unspecified; Z98.890 Other specified postprocedural states; Z90.49 Acquired absence of other specified parts of digestive tract; Z89.421 Acquired absence of other right toe(s); Z89.512 Acquired absence of left leg below knee
CPT/HCPCS: J2001; J2250; J3010; J7030